=== PATIENT | female | born 1940 | race Caucasian/White ===

== ENCOUNTER 2017-01-14 09:57 | Inpatient (IN) | payer MEDICARE ==
[~2017-01-14] VITALS: Ht 167.6 cm; Wt 69.8 kg
--- NOTE | ~2017-01-14 | DS ---
Discharge Summary [facility] [address] [place]. [address] NAME: SIENNA TRAVIS : 40 STATUS : DIS IN PAT#: [id number] AGE: 76 ADM/REG DATE : 01/15/17 MR#: [id number] REPORT SERV DATE: 01/20/17 DICTATED BY: CHINTAN HOLCOMB DATE: 01/19/17 REPORT STATUS : Draft TRANSCRIBED BY: MODL DATE: 01/19/17 ADMISSION DATE: 01/15/2017 DISCHARGE DATE: 01/19/2017 DISCHARGE DIAGNOSES: 1. A newly diagnosed non-small cell lung cancer. 2. Supratherapeutic INR. 3. Acute encephalopathy, resolved. 4. Acute kidney injury, resolved. 5. Chronic obstructive pulmonary disease. 6. Uncontrolled hypertension. 7. Anticoagulated with Coumadin. CONSULTS: 1. Pulmonology. 2. Neurology. PROCEDURES: A bronchoscopy performed 01/18/2017 that showed a malignant mass lesion, most likely a non-small cell lung cancer. HOSPITAL COURSE: This is a 76-year-old lady, who was actually admitted to the hospital with initial complaints of altered mental status. The patient was found to have CT of the chest showing two masses in the right upper lobe as well as mediastinal adenopathy. For details, please refer to excellent H and P dictated by Dr. Jessica Rg. In summary, the patient was admitted and was seen by Pulmonology. The patient underwent above-mentioned procedure of bronchoscopy, which showed a probable non-small cell lung cancer. In the meantime, the patient's other presenting complaints including acute kidney injury as well as encephalopathy had mostly resolved. After the diagnosis, the patient was given an established appointment with Dr. Campbell for close outpatient followup. The patient will also have a close outpatient followup with Dr. Cuenca. Otherwise, the patient did not have any other acute medical issues during this hospital stay. DISPOSITION: Home. DISCHARGE MEDICATIONS: No significant changes to home medications except for addition of analgesia and antiemetics for postop pain control. FOLLOWUP: 1. Please follow up with Dr. Campbell as instructed. 2. Please follow with Dr. Cuenca as instructed. Total of 35 minutes spent in coordinating this patient's discharge today. SCAR/VEE Discharge Summary [place] [id number] [address] NAME: SIENNA TRAVIS : 40 STATUS : DIS IN PAT#: [id number] AGE: 76 ADM/REG DATE : 01/15/17 MR#: [id number] REPORT SERV DATE: 01/20/17 DICTATED BY: CHINTAN HOLCOMB DATE: 01/19/17 REPORT STATUS : Draft TRANSCRIBED BY: MODL DATE: 01/19/17 Chintan Holcomb MD / [id number] CC: MD Jax Jeter M.D.
--- NOTE | ~2017-01-14 | CN ---
Consultation Report [facility] [address] [place]. [address] NAME: SIENNA TRAVIS : 40 STATUS : ADM IN PAT#: [id number] AGE: 76 ADM/REG DATE : 01/15/17 MR#: [id number] REPORT SERV DATE: 01/16/17 DICTATED BY: DATE: REPORT STATUS : Draft TRANSCRIBED BY: MODL DATE: 01/15/17 NEUROLOGY CONSULTATION DATE OF CONSULTATION: 01/15/2017 REASON FOR CONSULT: Encephalopathy. HISTORY OF PRESENT ILLNESS: This is a 76-year-old female who presented to [facility] on 01/14[facility]2017 secondary to acute confusion as well as weakness. When the patient woke up, was noted to have abnormal movement trying to ambulate, was noted to be utilizing her own bedroom, and was noted to have severe weakness. The patient's symptoms subsequently improved, and the patient was presented to [facility] for evaluation. While in the process of evaluation, the patient was noted to have a pulmonary mass suspicious for possible carcinoma and is in the process of being evaluated for bronchoscopy by Pulmonary. The patient today was noted to have an episode of acute confusion, disorientation, as well as bilateral involuntary movement described as ballistic type of movement bilateral lower extremity weakness and unable to follow commands with symptom lasting roughly 40 minutes, spontaneously improved. The patient's family denies similar events in the past, but does complain of right cervical pain that has been ongoing for about a month that was severe, somewhat improved with IV pain medication as well as reports of some headache associated with the episodes. The patient otherwise denies any home fevers, chills, and denies any headache prior to hospitalization. The patient's family reports some weakness as well as numbness, occurred roughly 20 years ago, but otherwise, denies any history of seizure or previous seizure medication usage. The patient currently is close to baseline at the time of my evaluation according to family members. PAST MEDICAL HISTORY: Significant for recently discovered pulmonary mass, required pulmonary evaluation and pending bronchoscopy and biopsy. The patient apparently was also noted to have pulmonary embolism and paroxysmal atrial fibrillation for which the patient was taking Coumadin, history of DVT as well as peripheral arterial disease status post procedure for occlusion. The patient was also noted to have history of Raynaud phenomenon's phenomenon, COPD, degenerative disk disease, vitiligo, history of IVC filter placement. FAMILY HISTORY: Significant for myocardial infarction as well as Alzheimer's. The patient's brother was noted to have seizure secondary to head trauma. The patient was noted to have allergy to codeine, shellfish, and beta-blockers. SOCIAL HISTORY: The patient quit smoking roughly eight years ago. No current tobacco, alcohol, or recreational drug usage. HOME MEDICATIONS: The patient's home medications consist of Xanax, Lipitor, baclofen, digoxin, Flonase, Neurontin, hydralazine, multivitamin, Prilosec, trazodone, magnesium, Coumadin, and cinnamon oral supplement. The patient's cinnamon oral supplement, baclofen, trazodone, and Coumadin have since been discontinued during hospital stay. Consultation Report [place] [id number] [facility]. [address] NAME: SIENNA TRAVIS : 40 STATUS : ADM IN [facility]#: [id number] AGE: 76 ADM/REG DATE : 01/15/17 MR#: [id number] REPORT SERV DATE: 01/16/17 DICTATED BY: DATE: REPORT STATUS : Draft TRANSCRIBED BY: MODL DATE: 01/15/17 REVIEW OF SYSTEMS: Otherwise negative except for those mentioned in the HPI. PHYSICAL EXAMINATION: VITAL SIGNS: The patient, overnight, was noted to have vital signs T-max of 98.6, heart rate of 86 to 106, respirations of 16 to 24, and blood pressure of 114 to 162 over 59 to 89. GENERAL: The patient is well developed, well nourished, in no acute distress. CARDIOVASCULAR: Regular rate and rhythm. No carotid bruits were otherwise auscultated. PULMONARY: Clear to auscultation bilaterally. NEUROLOGICAL: Generally, the patient is alert and oriented to person, place, year, and month. Follows simple and two-step commands. Intact registration. Is able to recall relevant medical history. The patient was able to follow simple and two-step commands without significant difficulties. No clear dysarthria or aphasia was noted. Cranial nerves 2 through 12, pupils equal, round, and reactive to light. Extraocular eye movement was noted to be intact with peripheral vision intact. The patient was noted to have symmetrical facial expression and sensation. Midline tongue. Normal palatal movement. Mild decreased hearing in bilateral ears. The patient demonstrated 5/5 bilateral upper and lower extremity strength. The patient demonstrated no asterixis or myoclonus at the time of my evaluation. Reports symmetrical sensation in bilateral upper and lower extremities. Deep tendon reflex was otherwise 2+ throughout. Normal [id number] examination without ataxia. The patient was noted to be able to sit up unsupported and able to stand up, although patient was ambulating with wide-based gait as well as mild steppage gait in the left lower extremity and was mildly unsteady when ambulating. LABORATORY STUDIES: Demonstrated white blood cell count of 8.0, hemoglobin of 14.7, hematocrit of 45.3, and platelet count of 185. The patient was noted to have INR of 6.9. Chemistry panel; sodium 140, potassium 4.0, chloride 100, bicarb 34, BUN of 18, creatinine of 1.50, glucose of 151, calcium of 9.0, magnesium 1.9. MRI of the brain was reviewed which demonstrated old white matter disease, but otherwise no clear tumor. No stroke was seen. No hemorrhage was noted. The patient's MRI of the C-spine was also reviewed. Degenerative disk disease with neural foraminal encroachment was noted. No spinal cord compression was otherwise seen. IMPRESSION: 1. Encephalopathy. 2. Involuntary movement. The patient was noted to have episodic confusion as well as ballistic type of movement described by family members bilaterally. Event lasted about 40 minutes, now is resolved. The patient's family report the patient is back to baseline mental status. Question of possible frontal seizure. We will start the patient on a trial of Zonegran 200 mg p.o. q.h.s. We will check ammonia level, sedimentation rate, CRP, paraneoplastic panel, as well as EEG on 01/18/2017. RECOMMENDATIONS: 1. Ammonia, sedimentation rate, CRP, paraneoplastic panel with morning labs. Consultation Report [place] [id number] [place]. [address] NAME: SIENNA TRAVIS : 40 STATUS : ADM IN PAT#: [id number] AGE: 76 ADM/REG DATE : 01/15/17 MR#: [id number] REPORT SERV DATE: 01/16/17 DICTATED BY: DATE: REPORT STATUS : Draft TRANSCRIBED BY: MODL DATE: 01/15/17 2. EEG on 01/18/2017. 3. Zonegran 200 mg p.o. q.h.s. [facility]/MODL David Mansfield MD / [id number] CC: Liam Maldonado M.D.
--- NOTE | ~2017-01-14 | HP ---
History And Physical [facility] [address] [place]. [address] NAME: SIENNA TRAVIS : 40 STATUS : ADM Willian PAT#: [id number] AGE: 76 ADM/REG DATE : 01/14/17 MR#: [id number] REPORT SERV DATE: 01/14/17 DICTATED BY: ANNEMARIE CARROLL DATE: 01/14/17 REPORT STATUS : Draft TRANSCRIBED BY: MODL DATE: 01/14/17 DATE OF ADMISSION: 01/14/2017 The patient is a very pleasant 76-year-old female, who had an episode of confusion this night. 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 Basically she started to complain recently of the neck pain. She had some swelling on the back of her neck which was painful, so she was given a prescription by Ayde Nickerson of baclofen and she took it at night before last and as well as she took some Ambien, this both she took the night before last. The last night she did not take any medications but she was dizzy, she was confused, and she fell twice; both times she fell, there were diapers on the floor, so she fell on them. She did not have any damage while falling but she was very confused. She did not know where she is. She urinated on herself as well. Basically when I was seeing her, she came back to the baseline and was able to provide all past medical history, knew where she is, and knew the time and date and was alert, awake, and oriented. Blood pressure on presentation was elevated, it was 190/129. The patient and her daughter reported that last night, blood pressure was low in the 80s. The patient denies any chest pain. No shortness of breath. No abdominal pain. No fever. No rash. No headaches. Complaining of the neck pain. She was afebrile. She denies any cough as well. PAST MEDICAL HISTORY: Collected from daughter and from the patient. The patient has history of bilateral pulmonary embolism, multiple pulmonary embolisms and DVT, history of atrial fibrillation, history of peripheral arterial disease with left external iliac artery occlusion, status post procedure done by Dr. Vinson. Mild diabetes, not on any medications. Hypertension. History of Raynaud phenomenon. History of COPD. Quit smoking 8 years ago, used to smoke two packs a day. History of degenerative disc disease. Vitiligo. History of procedures done by Dr. Vinson on her left leg. History of emphysema per previous records. History of IVC filter placement in the past according to previous records. ALLERGIES: SHE IS ALLERGIC TO CODEINE, SHELLFISH, AND BETA BLOCKERS. FAMILY HISTORY: Father of myocardial infarction. Mother of complications of Alzheimer's. SOCIAL HISTORY: She lives at home. She still works. She takes care of sick people. She used tobacco. Smoked two packs per day, quit 8 years ago. No alcohol. No recreational drug use. HOME MEDICATIONS: Include Xanax 0.25 to 0.5 mg at bedtime; Lipitor 20 mg daily; baclofen 10 mg three times daily p.r.n.; cinnamon 1 capsule daily; digoxin 0.125 p.o. daily; Flonase one spray daily p.r.n.; Neurontin 300 mg p.o. daily, 600 at bedtime; hydralazine 25 mg p.o. q.8 hours; multivitamins daily; omeprazole 40 mg twice a day; trazodone 100 mg daily; over-the- counter sugar robbie twice a day; magnesium 1 tablet daily; and Coumadin 4 mg Wednesday, Wednesday, Wednesday, and Wednesday and 6 mg Wednesday and . History And Physical [address] [address] NAME: SIENNA TRAVIS : 40 STATUS : ADM Willian PAT#: [id number] AGE: 76 ADM/REG DATE : 01/14/17 MR#: [id number] REPORT SERV DATE: 01/14/17 DICTATED BY: ANNEMARIE CARROLL DATE: 01/14/17 REPORT STATUS : Draft TRANSCRIBED BY: VEE DATE: 01/14/17 PHYSICAL EXAMINATION: GENERAL: Well-nourished, well-developed female, not in acute distress. Resting quietly. VITAL SIGNS: Blood pressure 190/129, temperature 97.7, heart rate 97, respiratory rate 20, and oxygen saturation 92 on 1 L nasal cannula. HEENT: Head atraumatic, normocephalic. Conjunctivae clear. Pupils are equal and reactive to light and accommodation. Extraocular muscles are intact. NECK: Supple. Trachea is midline. No supraclavicular or cervical lymphadenopathy. LUNGS: Diminished breath sounds bilaterally. Decreased respiratory effort. CARDIOVASCULAR SYSTEM: Regular rate and rhythm. Point of maximal impulse not displaced. ABDOMEN: Soft, nontender, and nondistended. Positive normoactive bowel sounds. EXTREMITIES: No clubbing, cyanosis, or edema. SKIN: Normal color and turgor. There are changes of vitiligo on the lower extremities. NEUROLOGICAL EXAMINATION: Awake, alert, and oriented in time, place, and person. Muscle strength is 5/5 bilaterally on upper and lower extremities. Deep tendon reflexes 2/4 bilaterally on upper and lower extremities. Sensations are intact. The patient is back to the baseline. LABORATORY STUDIES: EKG showed sinus rhythm with premature atrial complexes, ventricular rate of 91, left axis deviation, left ventricular hypertrophy with repolarization abnormality. Sodium 141, potassium 3.5, chloride 101, carbon dioxide 32, BUN 12, creatinine 0.94, blood sugar 188. Troponin less than 0.02. Digoxin 0.8. White count 8, hemoglobin 15.4, hematocrit 46, and platelet count 173. PT 52.5, INR 5.9. UA, no evidence of urinary tract infection. CT of the chest without contrast showed 2 masses in the right upper lobe compatible with carcinoma, metastatic adenopathy in the mediastinum and right hilum, extensive centrilobular emphysema, similar appearance of the fatty infiltrated liver with benign hemangioma; similar appearance of small adrenal adenomas, stable from 2015. Chest x- ray today masslike density projecting over the upper right lung measuring up to 26 to 38 mm suggesting a followup CT scan for further characterization; stable mild chronic interstitial lung changes with mild biapical fibrosis. CT of the brain without contrast, no acute intracranial pathology, atrophy, chronic microvascular white matter ischemic changes. CT of the cervical spine showed degenerative disc changes and facet arthropathy resulting in level of foraminal narrowing as detailed above. No acute cervical spine abnormality, calcific atherosclerosis. ASSESSMENT AND PLAN: This is a very pleasant 76-year-old female, who has an extensive past medical history listed above, presented 1. With episode of confusion which currently is resolved. 2. Hypertensive urgency. 3. Newly diagnosed lung mass, likely cancer. 4. History of chronic obstructive pulmonary disease. 5. History of supratherapeutic INR. 6. History of PEs and DVTs in the past. 7. History of peripheral arterial disease. PLAN: 1. For her confusional episode which is currently resolved, we will check her serum vitamin B12 level. We will do MRI and MRA of the head and neck and bilateral carotid History And Physical [address] [address] NAME: SIENNA TRAVIS : 40 STATUS : ADM Willian PAT#: [id number] AGE: 76 ADM/REG DATE : 01/14/17 MR#: [id number] REPORT SERV DATE: 01/14/17 DICTATED BY: ANNEMARIE CARROLL DATE: 01/14/17 REPORT STATUS : Draft TRANSCRIBED BY: VEE DATE: 01/14/17 ultrasound, especially with an episode of falling and dizziness. I will also check her echocardiogram. 2. Neck pain with neck swelling in the back of her neck. I will order also MRI of the cervical spine. Family also requested MRI of the cervical spine. 3. Hypertensive urgency. We will continue the patient's blood pressure medications and we will give the patient hydralazine as needed to control her blood pressure. 4. Newly diagnosed lung mass on the CT scan suspicious for cancer with a history of long- term smoking and emphysema. We will consult general car supervisor yard for this mass. 5. Supratherapeutic INR. We will ask pharmacy to manage her Coumadin anticoagulation. 6. Also the patient's daughter reported that Ambien helps her to sleep and she does not think that the confusion fall was related to Ambien, so they requested to continue on Ambien which we will do. 7. Everything was discussed with the patient and family and Dr. Shaver will see this patient starting tomorrow morning. MG/MODL Annemarie Carroll M.D. / [id number] CC: MD Jax Bell II, M.D.
--- NOTE | ~2017-01-14 | EEG ---
Electroencephalogram [facility] [address] [place]. [address] NAME: SIENNA TRAVIS : 40 STATUS : DIS IN PAT#: [id number] AGE: 76 ADM/REG DATE : 01/15/17 MR#: [id number] REPORT SERV DATE: 01/19/17 DICTATED BY: RAFIQ BARRON DATE: 01/19/17 REPORT STATUS : Draft TRANSCRIBED BY: MODL DATE: 01/19/17 EEG NUMBER: [id number]. REASON FOR EEG: Altered mental status. DESCRIPTION: 23 surface electrodes, 10-20 international placement was used. The patient was noted to be awake, drowsy, and asleep throughout the study. Photic stimulation was performed. Video monitoring was utilized. The background activity consisted of moderate to low voltage, relatively well-organized 8 to 9 cycles per second located in the posterior head regions. This activity attenuated well with the eye-opening maneuvers. Slower frequencies in the theta range were noted scattered throughout during drowsiness and light sleep. No paroxysmal or epileptiform activity was seen during the study. No significant asymmetry of cerebral activity was present. The patient was observed to have episodes of sleep apnea on the video monitoring. In addition, snoring was noted by the ambulatory technologist. IMPRESSION: THIS EEG IS WITHIN NORMAL RANGE FOR AN AWAKE AND DROWSY STATE. VERY SHORT PERIODS OF LIGHT SLEEP WERE RECORDED. THE PATIENT WAS NOTED TO HAVE EPISODES OF POSSIBLE OBSTRUCTIVE SLEEP APNEA. RECOMMEND TO OBTAIN A FULL POLYSOMNOGRAPHY STUDY TO EVALUATE THE PATIENT FOR POSSIBLE OBSTRUCTIVE SLEEP APNEA OR OTHER SLEEP-RELATED DISORDERS. CLINICAL CORRELATION IS RECOMMENDED. TESS/VEE Rafiq Barron MD / [id number] CC: MD Jax Jeter M.D.
--- NOTE | ~2017-01-14 | CN ---
Consultation Report [facility] [address] [place]. [address] NAME: JESSICA TRAVIS : 40 STATUS : ADM IN PAT#: [id number] AGE: 76 ADM/REG DATE : 01/15/17 MR#: [id number] REPORT SERV DATE: 01/15/17 DICTATED BY: DONOVAN BRANDT DATE: 01/15/17 REPORT STATUS : Draft TRANSCRIBED BY: MODL DATE: 01/15/17 CONSULT NOTE DATE OF CONSULTATION: 01/15/2017 CHIEF COMPLAINT: Altered mental status. HISTORY OF PRESENT ILLNESS: Mrs. Jessica Travis is a pleasant 76-year-old white female with a past medical history significant for COPD, thromboembolic disease, previous pneumonias, and Raynaud, who presents to [facility]'s Emergency Room with complaints of altered mental status. It should be noted that Mrs. Travis has not been hospitalized recently and has done fairly well given her advanced age and comorbidities. The patient has been seen by Dr. Bhatti in the past. She quit smoking approximately seven years ago, prior to this time, she smoked approximately a pack a day for a period of 50 years. She is on no breathing medications. She does have known obstructive sleep apnea, but is noncompliant with therapy. She describes her exercise tolerance prior to this recent illness is being fairly good. The patient has been seen in the remote past by Dr. Cuenca in 2014 when she was seen for concerns related to COPD and hypoxemia. At that time, her hypoxemia was largely a result of her severe emphysema. Her history of previous thromboembolic disease was noted as well. More recently, she was in her normal state of health when she began to have altered mental status and suffered some falls. She eventually presented to [facility]'s Emergency Room where she was noted to have an elevated blood pressure as high as 190 systolic. She was afebrile. She had oxygenation of 92% on 1 L. Initial blood work revealed a white blood cell count of 8.0. Her INR was noted to be elevated at 5.9. She did undergo a CT of the head, which did not reveal any acute process. She eventually underwent a CT of the chest, which revealed a right apical mass as well as a hilar mass and some significant mediastinal lymphadenopathy. For the aforementioned reasons, she has been referred to the Pulmonary Service for further assessment. Currently, the patient denies any shortness of breath. She is not producing any purulent sputum. She is not wheezing. The patient currently denies any murmurs, angina, or palpitations. In regard to constitutional symptoms, the patient denies fever, chills, nausea, vomiting, chest pain, abdominal pain, or edema. PAST MEDICAL HISTORY: 1. Bilateral pulmonary embolism. 2. DVT. 3. Atrial fibrillation. Consultation Report [address] [place]. [address] NAME: JESSICA TRAVIS : 40 STATUS : ADM IN PAT#: [id number] AGE: 76 ADM/REG DATE : 01/15/17 MR#: [id number] REPORT SERV DATE: 01/15/17 DICTATED BY: DONOVAN BRANDT DATE: 01/15/17 REPORT STATUS : Draft TRANSCRIBED BY: VEE DATE: 01/15/17 4. Peripheral arterial disease. 5. Diabetes. 6. Raynaud. 7. Hypertension. 8. COPD. 9. Degenerative disk disease. PAST SURGICAL HISTORY: IVC filter placement. FAMILY HISTORY: The patient's father of myocardial infarction. She has a brother, who has COPD and who is a heavy smoker. SOCIAL HISTORY: The patient lives at home. 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 She has a daughter, who is a nurse as well and is actively participating in her mother's health care. TOBACCO/ALCOHOL: As previously mentioned, the patient quit smoking approximately seven years ago, prior to this time, she smoked approximately a pack a day for a period of 50 years. She denies any recent alcohol or illicit drug use. MEDICATIONS: Xanax 0.25 mg, atorvastatin 20 mg, baclofen 10 mg, digoxin 0.125 mg, gabapentin 300 mg, hydralazine 25 mg, omeprazole 40 mg, trazodone 100 mg, warfarin 4 mg. ALLERGIES: THE PATIENT HAS ADVERSE REACTION TO CODEINE AND SHELLFISH. REVIEW OF SYSTEMS: Complete review of systems was performed with pertinent positives and negatives contained within the body of the HPI. PHYSICAL EXAMINATION: VITALS: Blood pressure is 149/66, heart rate is 103, T-max is 98.6, respiratory rate is 12, SpO2 is 93% on 2 L. GENERAL: Mrs. Jessica Travis is a pleasant 76-year-old white female, who is not currently exhibiting any signs of acute distress. SKIN: Skin with appropriate texture or turgor. No rashes, lesions, or ulcers. HEENT: Head: Skull is normocephalic, atraumatic. Sclerae anicteric. Ears: Auricles and tragus without pain to palpation. Nose: Bilateral nasal patency. Throat: Dentition noted. NECK: Supple. Trachea midline. No cervical lymphadenopathy appreciated. THORAX/LUNGS: Breath sounds appreciated throughout. No rales, wheezes, or rhonchi. CARDIOVASCULAR: No gallop or murmurs appreciated. ABDOMEN: Soft, nondistended, nontender. PERIPHERAL VASCULAR: No edema. MUSCULOSKELETAL: Full AROM and PROM on all joints. NEUROLOGIC: Cranial nerves 2 through 12 grossly intact. Consultation Report [place] [id number] [facility] [place]. [address] NAME: JESSICA TRAVIS : 40 STATUS : ADM IN [facility]#: [id number] AGE: 76 ADM/REG DATE : 01/15/17 MR#: [id number] REPORT SERV DATE: 01/15/17 DICTATED BY: DONOVAN BRANDT DATE: 01/15/17 REPORT STATUS : Draft TRANSCRIBED BY: VEE DATE: 01/15/17 PSYCHIATRIC: The patient is alert and oriented x3. ACCESSORY DATA: Reveals a white blood cell count of 8000, hemoglobin and hematocrit is 14.7 and 45.3. INR is 6.9. Creatinine is 1.5. Arterial blood gas reveals pH 7.34, PaCO2 of 63, PaO2 of 76, and a bicarb of 33.6. CT of the chest reveals two masses in the right upper lobe as well as mediastinal adenopathy, severe central lobular emphysema is appreciated as well. IMPRESSION: 1. Encephalopathy. 2. Hypertensive urgency. 3. Lung masses in the right upper lobe concerning for primary lung malignancy. 4. Chronic obstructive pulmonary disease. 5. Supratherapeutic INR. PLAN: We have discussed the risks, benefits, and alternatives associated with bronchoscopy. The patient and family are aware of the risk and would like to proceed with procedure. That being said, the patient is currently supratherapeutic on her Coumadin. The Hospitalist Service has appropriately addressed this issue and we will surveil this moving forward. Realistically, we will likely pursue procedure on Wednesday. In regard to the patient's COPD, we will place her on a full armamentarium of nebulized medications. The aforementioned impression and plan has been discussed with Dr. Fontenot, who will follow further recommendations. We thank you for this consult and look forward to participating in the care of Mrs. Jessica Travis. LAZARO/MODL Donovan Brandt PA-C / [id number] CC: Liam Maldonado M.D.
[~2017-01-14 09:57] MED LIST: ASAB PO; ASABAYER PO; BETAMETH DIP0.052 TOP; C1 PO; C5 PO; CEFT5 PO; DCN100 PO; DIGITEK0.125 MG PO; DILT-XR180 MG PO; DULERA 200 MCG/13 GM INH; FLAG500TAB PO; GLUCOTROL5 PO; INHALER PO; KLOR-CON 1010 MEQ PO; L40 PO; LORTAB10 PO; LOTENSIN HCT1 TA2 PO; OS500+D PO; PR25 PO; PRILOSEC40 MG PO; REST15 PO; SPIRIVA INH; TRAZ100 PO; TRAZODONE150 MG PO; VERELANPM1 PO; ZOCOR40 PO
[2017-01-14 10:55] LABS: BASOPHILS 0.1 %; BASOPHILS ABSOLUTE 0.01 10/3/uL (0.0-0.16); EOSINOPHILS 0 %; IMMATURE GRANULOCYTES 0.2 %; IMMATURE GRANULOCYTES ABSOLUTE 0.02 10/3/uL (0.0-0.11); LYMPHOCYTES 17.3 %; LYMPHOCYTES ABSOLUTE 1.39 10/3/uL (0.67-4.30); MEAN CORPUS HGB CONC 33.5 g/dL (32.0-36.0); MEAN CORPUSCULAR HEMOGLOB 29.8 pg (26.0-34.0); MEAN PLATELET VOLUME 9.8 fL (9.2-13.0); MONOCYTES 9.6 %; MONOCYTES ABSOLUTE 0.77 10/3/uL (0.21-1.20); NEUTROPHILS 72.8 %; NEUTROPHILS ABSOLUTE 5.83 10/3/uL (2.02-8.40); PLATELET COUNT 173 10/3/uL (150-400); RBC DISTRIBUTION WIDTH 14.5 % (12.0-16.0)
[2017-01-14 10:56] LABS: HEMOGLOBIN 15.4 g/dL (12.0-16.0); MANUAL DIFF NO %; RED CELL COUNT 5.17 10/6/uL (4.0-5.6)
[2017-01-14 11:03] LABS: PARTIAL THROMBO TIME 70.5 SEC (22.5-37.2)
[2017-01-14 11:04] LABS: INTERNATIONAL NORMAL RATI 5.9 UNITS (-); PROTIME (NOT ORD) 52.5 SEC (12.0-14.5)
[2017-01-14 11:10] LABS: ASCORBIC ACID (UR NOT ORDER) NEG (NEG); BILIRUBIN, URINE NEGATIVE (NEG); ER URINALYSIS TAT 0 Hrs 09 Mins; KETONE, URINE NEGATIVE (NEG); LEUKOCYTE ESTERASE(NOT OR NEG (NEG); NITRITE (URINE) NEG (NEG); WBC (NOT ORDERED) (RFLEX) 2 (0-5)
[2017-01-14 11:24] LABS: CALCIUM, SERUM 9.3 MG/DL (8.5-10.4); CHLORIDE, SERUM 101 MMOL/L (96-112); CO2 (CARBON DIOXIDE) 32 MMOL/L (24-34); CREATININE 0.94 MG/DL (0.55-1.02); DIGOXIN 0.8 NG/ML (0.8-2.0); GFR AFRICAN AMERICAN 68 ML/MIN (>=60); GFR NON AFRICAN AMERICAN 59 ML/MIN (>=60); GLUCOSE, SERUM 188 MG/DL (60-99); SGOT(AST) 26 U/L (5-40); SGPT(ALT) 35 U/L (5-65); SODIUM, SERUM 141 MMOL/L (135-148); TOTAL BILIRUBIN 0.5 MG/DL (0-1.2); TROPONIN I <0.02 NG/ML (<0.05)
[2017-01-14 11:25] LABS: ALBUMIN 3.4 G/DL (3.5-5.0); ALKALINE PHOSPHATASE 178 U/L (45-117); BUN (BLOOD UREA NITROGEN) 12 MG/DL (6-23); CHEST PAIN PROFILE TAT 0 Hrs 33 Mins; DIRECT BILIRUBIN < 0.1 MG/DL (0.0-0.4); INDIRECT BILIRUBIN(NOT ORDER) 0.4 MG/DL (0.1-0.9); POTASSIUM, SERUM 3.5 MMOL/L (3.5-5.3); TOTAL PROTEIN 7.8 G/DL (6.0-8.5)
[2017-01-14] MEDS ORDERED: [UNRECOGNIZED DRUG - OTHER] PO ×2 (15:12)
[2017-01-14] MEDS ORDERED: NEUR300 PO ×2 (15:13)
[2017-01-14] MEDS ORDERED: X25 PO (15:14)
[2017-01-14] MEDS ORDERED: LIPITOR20 PO (15:14)
[2017-01-14] MEDS ORDERED: PRILOSEC40 MG PO (15:14)
[2017-01-14] MEDS ORDERED: LAN125 PO (15:14)
[2017-01-14] MEDS ORDERED: COUMADIN4 MG PO (15:15)
[2017-01-14] MEDS ORDERED: APRES25 PO (15:15)
[2017-01-14] MEDS ORDERED: THERGRANM PO (15:16)
[2017-01-14] MEDS ORDERED: TRAZ100 PO (15:16)
[2017-01-14] MEDS ORDERED: COUMADIN6 MG PO (15:16)
[2017-01-14] MEDS ORDERED: CINNAMONPO PO (15:16)
[2017-01-14] MEDS ORDERED: MAGNESIUM PO (15:17)
[2017-01-14] MEDS ORDERED: LIOR10 PO (15:17)
[2017-01-14] MEDS ORDERED: FLONASE NAS (15:18)
[2017-01-14 20:00] LABS: TROPONIN I <0.02 NG/ML (<0.05)
[2017-01-14 20:02] LABS: DIGOXIN 1.1 NG/ML (0.8-2.0); FOLATE 48.4 NG/ML (>5.2)
[2017-01-15 02:19] LABS: BASOPHILS 0.1 %; BASOPHILS ABSOLUTE 0.01 10/3/uL (0.0-0.16); EOSINOPHILS 0.1 %; EOSINOPHILS ABSOLUTE 0.01 10/3/uL (0.0-0.53); HEMATOCRIT 45.3 % (36.0-48.0); HEMOGLOBIN 14.7 g/dL (12.0-16.0); IMMATURE GRANULOCYTES 0.3 %; IMMATURE GRANULOCYTES ABSOLUTE 0.02 10/3/uL (0.0-0.11); LYMPHOCYTES 26.2 %; LYMPHOCYTES ABSOLUTE 2.08 10/3/uL (0.67-4.30); MEAN CORPUS HGB CONC 32.5 g/dL (32.0-36.0); MEAN CORPUSCULAR HEMOGLOB 29.5 pg (26.0-34.0); MEAN PLATELET VOLUME 9.9 fL (9.2-13.0); MONOCYTES 9.9 %; MONOCYTES ABSOLUTE 0.79 10/3/uL (0.21-1.20); NEUTROPHILS 63.4 %; NEUTROPHILS ABSOLUTE 5.04 10/3/uL (2.02-8.40); PLATELET COUNT 185 10/3/uL (150-400); RBC DISTRIBUTION WIDTH 15.1 % (12.0-16.0); RED CELL COUNT 4.98 10/6/uL (4.0-5.6)
[2017-01-15 02:21] LABS: MANUAL DIFF NO %
[2017-01-15 02:38] LABS: CHLORIDE, SERUM 100 MMOL/L (96-112); CO2 (CARBON DIOXIDE) 34 MMOL/L (24-34); GFR AFRICAN AMERICAN 39 ML/MIN (>=60); GFR NON AFRICAN AMERICAN 33 ML/MIN (>=60); GLUCOSE, SERUM 151 MG/DL (60-99); SODIUM, SERUM 140 MMOL/L (135-148); TROPONIN I 0.03 NG/ML (<0.05)
[2017-01-15 03:05] LABS: INTERNATIONAL NORMAL RATI 7.4 UNITS (-); PROTIME (NOT ORD) 62.3 SEC (12.0-14.5)
[2017-01-15 03:09] LABS: BUN (BLOOD UREA NITROGEN) 18 MG/DL (6-23)
[2017-01-15 12:22] LABS: INTERNATIONAL NORMAL RATI 6.9 UNITS (-); PROTIME (NOT ORD) 59.5 SEC (12.0-14.5)
[2017-01-15 13:27] LABS: INSTRUMENT SERIAL # 8083
[2017-01-15 13:28] LABS: ALLENS TEST Pos; BE (BASE EXCESS) 5.7 MEQ/L (0 +/- 2.5); CARBOXYHEMOGLOBIN 1.5 % (0-3); HCO3 (ACTUAL BICARBONATE) 33.6 MEQ/L (23-27); HEMOBLOGIN CONTENT 14.6 G/DL (12-16); METHEMOGLOBIN 0.1 % (0-3); O2 CONTENT 19.1 VOL% (18-24); PCO2 (CO2 TENSION) 63 MMHG (35-45); PO2 (O2 TENSION) 76 MMHG (79-93); SAMPLE Arterial; pH 7.34 (7.37-7.43)
[2017-01-16 06:17] LABS: BASOPHILS 0.1 %; BASOPHILS ABSOLUTE 0.01 10/3/uL (0.0-0.16); EOSINOPHILS 0 %; HEMOGLOBIN 13.1 g/dL (12.0-16.0); IMMATURE GRANULOCYTES 0.3 %; IMMATURE GRANULOCYTES ABSOLUTE 0.03 10/3/uL (0.0-0.11); LYMPHOCYTES 14.2 %; LYMPHOCYTES ABSOLUTE 1.38 10/3/uL (0.67-4.30); MEAN CORPUS HGB CONC 32.3 g/dL (32.0-36.0); MEAN CORPUSCULAR HEMOGLOB 29.8 pg (26.0-34.0); MEAN PLATELET VOLUME 9.9 fL (9.2-13.0); MONOCYTES 13.3 %; MONOCYTES ABSOLUTE 1.29 10/3/uL (0.21-1.20); NEUTROPHILS 72.1 %; NEUTROPHILS ABSOLUTE 7.02 10/3/uL (2.02-8.40); PLATELET COUNT 160 10/3/uL (150-400); RBC DISTRIBUTION WIDTH 15.4 % (12.0-16.0); WHITE BLOOD CELLS 9.7 10/3/uL (4.5-10.5)
[2017-01-16 06:20] LABS: HEMATOCRIT 40.5 % (36.0-48.0); MANUAL DIFF NO %
[2017-01-16 06:26] LABS: INTERNATIONAL NORMAL RATI 2.1 UNITS (-)
[2017-01-16 06:27] LABS: PROTIME (NOT ORD) 23.7 SEC (12.0-14.5)
[2017-01-16 06:30] LABS: CALCIUM, SERUM 8.6 MG/DL (8.5-10.4); CHLORIDE, SERUM 100 MMOL/L (96-112); CO2 (CARBON DIOXIDE) 34 MMOL/L (24-34); CREATININE 1.04 MG/DL (0.55-1.02); GFR AFRICAN AMERICAN 60 ML/MIN (>=60); GFR NON AFRICAN AMERICAN 52 ML/MIN (>=60); GLUCOSE, SERUM 152 MG/DL (60-99); POTASSIUM, SERUM 3.7 MMOL/L (3.5-5.3); SODIUM, SERUM 141 MMOL/L (135-148)
[2017-01-16 06:34] LABS: BUN (BLOOD UREA NITROGEN) 22 MG/DL (6-23); C-REACTIVE PROTEIN 6.4 MG/L (<8.0)
[2017-01-16 07:03] LABS: SED RATE 38 MM/HR (0-20)
[2017-01-17 06:03] LABS: BASOPHILS 0.1 %; BASOPHILS ABSOLUTE 0.01 10/3/uL (0.0-0.16); EOSINOPHILS 0.1 %; EOSINOPHILS ABSOLUTE 0.01 10/3/uL (0.0-0.53); HEMATOCRIT 38.9 % (36.0-48.0); HEMOGLOBIN 12.6 g/dL (12.0-16.0); IMMATURE GRANULOCYTES 0.4 %; IMMATURE GRANULOCYTES ABSOLUTE 0.03 10/3/uL (0.0-0.11); LYMPHOCYTES ABSOLUTE 1.38 10/3/uL (0.67-4.30); MEAN CORPUS HGB CONC 32.4 g/dL (32.0-36.0); MEAN CORPUSCULAR HEMOGLOB 29.6 pg (26.0-34.0); MEAN CORPUSCULAR VOLUME 91.5 fL (80-100); MEAN PLATELET VOLUME 10.4 fL (9.2-13.0); MONOCYTES ABSOLUTE 1.07 10/3/uL (0.21-1.20); NEUTROPHILS 67.4 %; NEUTROPHILS ABSOLUTE 5.17 10/3/uL (2.02-8.40); PLATELET COUNT 155 10/3/uL (150-400); RBC DISTRIBUTION WIDTH 15.4 % (12.0-16.0); RED CELL COUNT 4.25 10/6/uL (4.0-5.6); WHITE BLOOD CELLS 7.7 10/3/uL (4.5-10.5)
[2017-01-17 06:04] LABS: MANUAL DIFF NO %
[2017-01-17 06:06] LABS: INTERNATIONAL NORMAL RATI 1.7 UNITS (-); PROTIME (NOT ORD) 20.2 SEC (12.0-14.5)
[2017-01-17 06:12] LABS: CALCIUM, SERUM 8.6 MG/DL (8.5-10.4); CHLORIDE, SERUM 102 MMOL/L (96-112); CO2 (CARBON DIOXIDE) 32 MMOL/L (24-34); CREATININE 0.76 MG/DL (0.55-1.02); GFR AFRICAN AMERICAN 88 ML/MIN (>=60); GFR NON AFRICAN AMERICAN 76 ML/MIN (>=60); GLUCOSE, SERUM 140 MG/DL (60-99); POTASSIUM, SERUM 3.8 MMOL/L (3.5-5.3); SODIUM, SERUM 140 MMOL/L (135-148)
[2017-01-17 06:19] LABS: BUN (BLOOD UREA NITROGEN) 13 MG/DL (6-23)
[2017-01-17 06:50] LABS: SED RATE 43 MM/HR (0-20)
[2017-01-17 07:13] LABS: C-REACTIVE PROTEIN 39.1 MG/L (<8.0)
[2017-01-18 04:45] LABS: HEMATOCRIT 38.5 % (36.0-48.0); HEMOGLOBIN 12.2 g/dL (12.0-16.0); PLATELET COUNT 169 10/3/uL (150-400)
[2017-01-18 04:46] LABS: PFA (COL/EPI) 127 SEC (72-180)
[2017-01-18 04:52] LABS: INTERNATIONAL NORMAL RATI 1.6 UNITS (-); PROTIME (NOT ORD) 19.1 SEC (12.0-14.5)
[2017-01-18 04:53] LABS: PARTIAL THROMBO TIME 40.5 SEC (22.5-37.2)
[2017-01-18 18:43] LABS: BD FL LYMPH (NOT ORD) 6 %; BD FL SOURCE (NOT ORD) BAL; BF BASO (NOT OF) 0 %; BF LARGE MONONUCLEAR 25 %; BF TOTAL CELL CT (NOT ORD 259 /MM3; BODY FLUID EOS (NOT ORD) 0 %; BODY FLUID RBC (NOT ORD) 1000 /MM3; BODY FLUID SEG (NOT ORD) 69 %
[2017-01-19 05:32] LABS: INTERNATIONAL NORMAL RATI 1.5 UNITS (-); PROTIME (NOT ORD) 18.3 SEC (12.0-14.5)
[2017-01-19] MEDS ORDERED: PCET PO (12:20)
[2017-01-19] MEDS ORDERED: ZONEGRAN PO (12:21)
[2017-01-19] MEDS ORDERED: ZOFRAN ODT4 MG PO (12:22)
[2017-01-19] MEDS ORDERED: SPIRIVA RESPIMAT INH (12:33)
[2017-01-19] MEDS ORDERED: PROAIR HFA INH (12:34)
[2017-01-19] MEDS ORDERED: BREO ELLIPTA 21 EACH INH (12:35)
== END 2017-01-19 14:37 | disposition home or self-care (01) | DRG 166 ==
LOC: ER 09:57 → 6NO 16:30
PROVIDERS: Emergency Medicine; Hospitalist; Internal Medicine; Internal Medicine Pulmonary Disease; Physician Assistant Medical
PROC: 30233K1 Transfusion of Nonautologous Frozen Plasma into Peripheral Vein, Percutaneous Approach (ICD-10-PCS; principal; 2017-01-15)
PROC: 0B9F8ZX Drainage of Right Lower Lung Lobe, Via Natural or Artificial Opening Endoscopic, Diagnostic (ICD-10-PCS; 2017-01-18 10:33)
PROC: 07B74ZX Excision of Thorax Lymphatic, Percutaneous Endoscopic Approach, Diagnostic (ICD-10-PCS; 2017-01-18 10:33)
DX: C34.11 Malignant neoplasm of upper lobe, right bronchus or lung (principal); G93.41 Metabolic encephalopathy; N17.9 Acute kidney failure, unspecified; J44.9 Chronic obstructive pulmonary disease, unspecified; K76.0 Fatty (change of) liver, not elsewhere classified; I48.0 Paroxysmal atrial fibrillation; E11.9 Type 2 diabetes mellitus without complications; G25.81 Restless legs syndrome; R59.0 Localized enlarged lymph nodes; I16.0 Hypertensive urgency; R09.02 Hypoxemia; I73.9 Peripheral vascular disease, unspecified; I73.00 Raynaud's syndrome without gangrene; W19.XXXA Unspecified fall, initial encounter; G47.33 Obstructive sleep apnea (adult) (pediatric); Z86.711 Personal history of pulmonary embolism; Z86.718 Personal history of other venous thrombosis and embolism; Z87.891 Personal history of nicotine dependence; Z88.5 Allergy status to narcotic agent; Z88.8 Allergy status to other drugs, medicaments and biological substances; Z91.013 Allergy to seafood; Z95.828 Presence of other vascular implants and grafts; Z79.01 Long term (current) use of anticoagulants; Z86.010 Personal history of colon polyps; Z95.820 Peripheral vascular angioplasty status with implants and grafts; Z87.01 Personal history of pneumonia (recurrent)
CPT/HCPCS: 36415; 70450; 70544; 70547; 70551; 71010; 71260; 72125; 72141; 74177; 80048; 80076; 80162; 81001; 82140; 82607; 82746; 82805; 82962; 83036; 83519; 83519-59; 83520; 83735; 84443; 84484; 84520; 85014; 85018; 85025; 85049; 85347; 85576; 85610; 85652; 85730; 86140; 86256; 86256-59; 86850; 86900; 86901; 87015; 87070; 87102; 87116; 87205; 88112; 88172; 88173; 88305; 88341; 88342; 88344; 89051; 93005; 93306; 93880; 94640; 94668; 94762; 95819; 99285; A9270-GY; J0360; J2250; J2405; J2710; J3411; P9059; Q9967